=== PATIENT | female | born 2000 | race African-American/Black ===

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

== ENCOUNTER 2019-03-04 20:19 | Day surgery (SDC) | payer OTHER ==
[2019-03-04] MEDS ORDERED: hydrALAZINE 20 MG/ML VIAL SLOW IVP PRN (21:43)
[2019-03-04 21:45] VITALS: BMI 28.2
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
== END 2019-03-04 22:28 | disposition home or self-care (01) ==
LOC: L&D/OP 20:19
PROVIDERS: ATTEND Emergency Medicine
DX: O47.1 False labor at or after 37 completed weeks of gestation (principal); O99.89 Other specified diseases and conditions complicating pregnancy, childbirth and the puerperium; R10.2 Pelvic and perineal pain; O09.293 Supervision of pregnancy with other poor reproductive or obstetric history, third trimester; O99.513 Diseases of the respiratory system complicating pregnancy, third trimester; J45.909 Unspecified asthma, uncomplicated; Z3A.39 39 weeks gestation of pregnancy

== ENCOUNTER 2019-03-05 22:59 | Inpatient (IN) | payer OTHER ==
[~2019-03-05 22:59] MED LIST: Bupivacaine 0.25% HCL 30 ML VIAL ONE
[2019-03-05 23:30] VITALS: BMI 28.2
[2019-03-06] MEDS ORDERED: Butorphanol Tartrate 1 MG/ML VIAL SLOW IVP PRN (00:03)
[2019-03-06] MEDS ORDERED: hydrALAZINE 20 MG/ML VIAL SLOW IVP PRN ×2 (00:03→10:41)
[2019-03-06] MEDS ORDERED: Acetaminophen 500 MG TAB PO PRN (00:03)
[2019-03-06] MEDS ORDERED: hydrOXYzine 25 MG TAB PO PRN (00:03)
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
[2019-03-06] MEDS ORDERED: Lidocaine 1% (PF) 30 ML VIAL SC PRN (02:14)
[2019-03-06] MEDS ORDERED: Methylergonovine 0.2 MG/ML VIAL IM PRN (02:14)
[2019-03-06] MEDS ORDERED: Misoprostol 200 MCG TAB PR PRN (02:14)
[2019-03-06] MEDS ORDERED: NS / Oxytocin 40 units/1000ml 1,000 ML IV PRN (02:14)
[2019-03-06] MEDS ORDERED: Ibuprofen 800 MG TAB PO PRN (02:14)
[2019-03-06] MEDS ORDERED: NS w/ Oxytocin 10 units 500 ML IV SCH (02:15)
[2019-03-06] MEDS ORDERED: Promethazine HCl 25 MG/ML VIAL IM PRN ×2 (02:16→03:37)
[2019-03-06] MEDS ORDERED: Ondansetron PF 4 MG/2 ML Vial IVP PRN ×2 (02:16→03:37)
[2019-03-06 02:30] LABS: Hemoglobin 11.6 g/dL (12.0-16.0); Mean Corpuscular Volume 91.1 fL (78.0-98.0); Mean Platelet Volume 8.2 fL (7.4-10.4); Platelet Count 218 thou/uL (130-400); RBC Distribution Width 12.6 % (11.5-14.5); Red Blood Cell (RBC) Count 3.73 mill/uL (4.00-5.20); White Blood Cell (WBC) Count 9.2 thou/uL (4.8-10.8)
[2019-03-06] MEDS ORDERED: Fentanyl 4 mcg/Bup 0.1% Cadd 100 ML ONE (02:49)
[2019-03-06 03:12] LABS: Hep B Surf Ag Non-Reactive S/CO (NonReactive)
[2019-03-06] MEDS ORDERED: Lactated Ringer's 500 ML IV PRN (03:37)
[2019-03-06] MEDS ORDERED: diphenhydrAMINE 50 MG/ML VIAL IVP PRN (03:37)
[2019-03-06] MEDS ORDERED: Acetaminophen 325 MG TAB PO PRN (03:37)
[2019-03-06] MEDS ORDERED: ePHEDrine/0.9% NaCl/PF SYRINGE 50 mg/10 ml SLOW IVP PRN (03:37)
[2019-03-06] MEDS ORDERED: Naloxone HCl 0.4 mg/ml Vial IVP PRN ×2 (03:37)
[2019-03-06] MEDS ORDERED: Fentanyl 4 mcg/Bupivacaine 0.1% Cassette 100 ML EPIDURAL SCH (03:45)
[2019-03-06] MEDS ORDERED: Communication Order-Pharmacy FS SCH (03:45)
[2019-03-06 04:21] LABS: Syphilis Antibody Nonreactive (Nonreactive); Syphilis Antibody Index 0.07 S/CO (<1.00 Non-Reactive)
--- NOTE | 2019-03-06 05:31 | PDOC.LDPN ---
Labor & Delivery Progress Note - Subjective Subjective: comfortable - Objective Vital signs reviewed and normal: yes General: NAD, resting Uterine fundus: non tender SVE: 5:20 Dilation: 5 Effacement: 100% Station: -1 FHT: category 1, variability present [place] contractions every: q2-4 min - Assessment (1) Asthma Code(s): J45.909 - UNSPECIFIED ASTHMA, UNCOMPLICATED Current Visit: No Status: Acute Qualifiers: Asthma severity: unspecified severity Asthma persistence: unspecified Asthma complication type: unspecified Qualified Code(s): J45.909 - Unspecified asthma, uncomplicated (2) Term Code(s): Z34.90 - ENCNTR FOR SUPRVSN OF NORMAL , UNSP, UNSP TRIMESTER Current Visit: No Status: Acute Plan: continue plan of care, labor augmentation -: 18 year old at 40 wks presents in labor. Patient has made gradual cervical change without augmentation. Patient /-1, midposition w/ bulging bag at 5:15. Patient agreeable to augmentation with pitocin. Will recheck in 2 hours or sooner if indicated. Category I strip. Addendum - Attending - Attending Attestation Date/Time: 03/06/19 5046 I personally evaluated the patient and discussed the management with Dr. Chappell I agree with the History, Examination, Assessment and Plan documented above with any addition or exceptions noted below. Gradual cervical change. Discussed augmentation with AROM vs pitocin. Epidural in place. Pain controlled. Cat 1 tracing. Repeat exam in 2 hours or prn. Christelle
[2019-03-06] MEDS: Lactated Ringer's 1,000 ML IV SCH (05:38)
--- NOTE | 2019-03-06 06:31 | PDOC.LDPN ---
Labor & Delivery Progress Note - Subjective Subjective: comfortable - Objective Vital signs reviewed and normal: yes General: NAD, resting Uterine fundus: non tender SVE: by nurse at 6:30 Dilation: 6 Effacement: 100% Station: -1 FHT: category 1, variability present [place] contractions every: q1-4 min - Assessment (1) Asthma Code(s): J45.909 - UNSPECIFIED ASTHMA, UNCOMPLICATED Current Visit: No Status: Acute Qualifiers: Asthma severity: unspecified severity Asthma persistence: unspecified Asthma complication type: unspecified Qualified Code(s): J45.909 - Unspecified asthma, uncomplicated (2) Term Code(s): Z34.90 - ENCNTR FOR SUPRVSN OF NORMAL , UNSP, UNSP TRIMESTER Current Visit: No Status: Acute Plan: continue plan of care -: Patient SROM, clear fluid at 6:25 AM. Cervical exam 100/-1. Addendum - Attending - Attending Attestation Date/Time: 03/06/19 0643 I personally evaluated the patient and discussed the management with Dr. Chappell I agree with the History, Examination, Assessment and Plan documented above with any addition or exceptions noted below. SROM with clear fluid. Now 6 cm. Cat 1 tracing. Continue monitoring. Repeat exam in 2 hours or prn. Christelle
[2019-03-06] MEDS ORDERED: Lidocaine 1% (PF) 30 ML VIAL ONE (07:26)
[2019-03-06] MEDS ORDERED: NS / Oxytocin 40 units/1000ml 1,000 ML ONE (07:26)
--- NOTE | 2019-03-06 08:10 | PDOC.LDPN ---
Labor & Delivery Progress Note - Subjective Subjective: comfortable, vaginal pressure, no concerns - Objective Vital signs reviewed and normal: yes (BP 124/58, HR 106) General: NAD, breathing through contractions SVE: complete, +1 per nurse Dilation: 10 Effacement: 100% Station: 1+ FHT: category 1 (FHR 145 bpm), variable decelerations (with contractions intermittently) [place] contractions every: 2-3 min Other exam findings: SROM at 0620, clear per nursin. Forebag bulging. Plan: continue plan of care -: practice pushing with nursing continue expectant mgmt epidural in place updated Dr. Li via text/phone call Addendum - Attending - Attending Attestation Date/Time: 03/06/19 1140 I personally evaluated the patient and discussed the management with the team. I agree with the History, Examination, Assessment and Plan documented above with any addition or exceptions noted below.
[2019-03-06] MEDS ORDERED: Lanolin Ointment 7 GM TUBE TOP PRN (10:41)
[2019-03-06] MEDS ORDERED: Milk Of Magnesia 30 ML UDCUP PO PRN (10:41)
[2019-03-06] MEDS ORDERED: NS / Oxytocin 40 units/1000ml 1,000 ML IV SCH (10:41)
[2019-03-06] MEDS ORDERED: Benzocaine-Menthol 82.5 ML CAN TOP PRN (10:41)
[2019-03-06] MEDS ORDERED: Bisacodyl 10 MG SUPP PR PRN (10:41)
[2019-03-06] MEDS ORDERED: Preparation H Ointment 28 GM TUBE PR PRN (10:41)
[2019-03-06] MEDS ORDERED: Docusate Calcium (SURFAK) 240 MG CAP PO SCH (11:00)
[2019-03-06] MEDS: Ibuprofen 800 MG TAB PO SCH ×2 (17:03→22:45)
[2019-03-06] MEDS: Prenatal Vitamin 1 TAB PO SCH (19:23)
[2019-03-06] MEDS: Ferrous Sulfate 325 MG TAB PO SCH (19:24)
[2019-03-06] MEDS: Docusate Calcium (SURFAK) 240 MG CAP PO SCH (21:47)
[2019-03-07] MEDS: Lactated Ringer's 1,000 ML IV SCH (03:28)
[2019-03-07] MEDS: Ibuprofen 800 MG TAB PO SCH ×3 (06:30→21:19)
[2019-03-07] MEDS: Ferrous Sulfate 325 MG TAB PO SCH ×2 (07:40→18:10)
[2019-03-07] MEDS ORDERED: Adacel (T-DAP) 0.5 ML SYRINGE IM ONE (09:00)
[2019-03-07] MEDS: Prenatal Vitamin 1 TAB PO SCH (09:57)
[2019-03-07] MEDS: Docusate Calcium (SURFAK) 240 MG CAP PO SCH ×2 (09:57→21:19)
--- NOTE | 2019-03-07 11:58 | PDOC.OBPPN ---
FMR OB PN: Subj - Interval History Hospital Day: 2 Day: 1 Interval History: Patient doing well, +UOP, tolerating PO, pain in her bottom. No f/c/n/v/cp FMR OB PN: Obj - Maternal Vital signs: Reviewed, stable - Urine output I&O: 03/06/19 03/07/19 03/08/19 06:59 06:59 06:59 Intake Total 1280 Balance 1280 - Lochia Lochia: mild FMR OB PN: Exam - Physical Exam General: awake, alert and oriented Heart: RRR General: no respiratory distress, no wheezing FMR OB PN: Data - Labs Lab results: labs reviewed FMR OB PN: A/P - Problem List (1) Status post vaginal delivery Current Visit: Yes Status: Acute Disposition: Ambulate TID PrepH PRN Pain meds PRN Hopeful d/c tomorrow as G1 and baby KEYANNA+ Discussion: Date/Time: 03/07/19 0086 This H&P was discussed with [] and [] who agree with the above documentation and plan.
[2019-03-07] MEDS: Polyethylene Glycol 3350 17 GM Packet PO SCH (15:41)
[2019-03-08] MEDS: Ibuprofen 800 MG TAB PO SCH ×2 (06:18→13:39)
[2019-03-08 08:10] VITALS: BP 121/70; TEMP 98.6
[2019-03-08] MEDS: Polyethylene Glycol 3350 17 GM Packet PO SCH (08:28)
[2019-03-08] MEDS: Ferrous Sulfate 325 MG TAB PO SCH ×2 (08:28→19:41)
[2019-03-08] MEDS: Docusate Calcium (SURFAK) 240 MG CAP PO SCH (08:44)
[2019-03-08] MEDS: Prenatal Vitamin 1 TAB PO SCH (08:44)
--- NOTE | 2019-03-09 12:54 | OP ---
DATE OF PROCEDURE: 03/06/2019 DELIVERING PHYSICIANS: Lilo Matthew, Meka Dukes, and Zee Gonsalez. ATTENDING: Dr. Hi Giraldo PROCEDURE PERFORMED: Spontaneous vaginal delivery. ANESTHESIA: Epidural. QBL: 200 mL. PREOPERATIVE DIAGNOSES: 1. Term intrauterine in labor. 2. Asthma. 3. Depression. 4. Isolated echogenic foci on ultrasound, cleared by MFM. POSTOPERATIVE DIAGNOSES: 1. Term intrauterine , delivered. 2. Asthma. 3. Depression. 4. Isolated echogenic foci on ultrasound, cleared by MFM. INDICATIONS: A 18-year-old female, G2, P0-0-1-0 with past medical history of spontaneous , presents in active labor to Labor and Delivery. DELIVERY NOTE: This is a 18-year-old female, G2, P0-0-1-0 at 40.0 weeks, who delivered a viable female infant on 03/06/2019 at 0834 hours following an uneventful antepartum course. A vigorous female was delivered over an intact perineum in the occipitoanterior position. had a complex presentation with its posterior arm across its chest. Anterior shoulder and then remainder of the body delivered. No nuchal cords. The head was held down, and mouth and nares were bulb suctioned. There was delayed cord clamping until the cord stopped pulsating, as desired by parents. Cord clamped and cut and cord blood collected. Placenta delivered intact with a 3-vessel cord noted. Fundal massage was performed, and the fundus was firm. The cervix and vagina were inspected, and it was found to have a right periurethral laceration, which was hemostatic and did not require repair. There was also noted to be bruising of the anterior cervical lip and an abrasion of the left periurethral area. Infant went to Nursery in good condition for routine care. Apgars were 8 and 9 at one and five minutes respectively. The patient tolerated delivery well and went to after routine care. Job ID: [id number] Attending addendum: I was present for the entire delivery. [facility] K[facility]TER[facility] CANCER CENTERMehreen
== END 2019-03-08 20:15 | disposition home or self-care (01) | DRG 807 ==
LOC: L&D/OP 22:59 → L&D 03-06 02:51 → 3SE 03-06 16:08
PROVIDERS: ADMIT Student in an Organized Health Care Education/Training Program; ATTEND Student in an Organized Health Care Education/Training Program
PROC: 10E0XZZ Delivery of Products of Conception, External Approach (ICD-10-PCS; principal; 2019-03-06)
PROC: 0HQ9XZZ Repair Perineum Skin, External Approach (ICD-10-PCS; 2019-03-06)
DX: O99.52 Diseases of the respiratory system complicating childbirth (principal); Z37.0 Single live birth; Z3A.40 40 weeks gestation of pregnancy; J45.909 Unspecified asthma, uncomplicated; F32.9 Major depressive disorder, single episode, unspecified; O71.82 Other specified trauma to perineum and vulva; O99.344 Other mental disorders complicating childbirth
CPT/HCPCS: 36415; 51702; 85027; 86780; 86850; 86900; 86901; 87340; 99285; J0595; J2001; J2590; S0020

== ENCOUNTER 2019-03-16 17:59 | Emergency (ER) | payer OTHER ==
[2019-03-16] MEDS ORDERED: Acetaminophen 325 MG TAB ONE (18:31)
--- NOTE | 2019-03-16 18:45 | RAD ---
XR Shoulder Lt 3 View STANDARD: 03/16/2019 6:26 PM CLINICAL INDICATION: Left shoulder injury. COMPARISON: February 11, 2018 FINDINGS: Bones: No acute fracture. Glenohumeral joint: Normal alignment. AC joint: Normal alignment. Visualized lung: Clear. Soft tissues: Within normal limits. IMPRESSION: No acute osseous abnormality.
--- NOTE | 2019-03-16 18:45 | RAD ---
XR Elbow Lt 2 View INDICATION: Left elbow pain injury FINDINGS: Bones: No acute fracture or subluxation is evident.. Joints: No joint capsular distention. Radiocapitellar alignment appears within normal limits. Soft tissues: No radiopaque foreign body is evident. IMPRESSION: No acute osseous abnormality.
== END 2019-03-16 19:17 | disposition home or self-care (01) ==
LOC: ERS 17:59
DX: O9A.23 Injury, poisoning and certain other consequences of external causes complicating the puerperium (principal); M25.522 Pain in left elbow; M25.532 Pain in left wrist; M54.9 Dorsalgia, unspecified; M54.2 Cervicalgia; R10.31 Right lower quadrant pain; M79.651 Pain in right thigh; M79.605 Pain in left leg; O99.53 Diseases of the respiratory system complicating the puerperium; J45.909 Unspecified asthma, uncomplicated; O99.345 Other mental disorders complicating the puerperium; F32.9 Major depressive disorder, single episode, unspecified; F41.9 Anxiety disorder, unspecified; O99.335 Smoking (tobacco) complicating the puerperium; F17.210 Nicotine dependence, cigarettes, uncomplicated; V43.62XA Car passenger injured in collision with other type car in traffic accident, initial encounter; Y92.481 Parking lot as the place of occurrence of the external cause